=== PATIENT | female | born 1985 | race Caucasian/White ===

== ENCOUNTER 2017-05-15 20:33 | Emergency (ER) | payer OTHER ==
[2017-05-15 20:43] VITALS: BP 114/66; BMI 31.3
[2017-05-15] MEDS ORDERED: IBUPROFEN 600 MG TABLET (FP) PO ONE (20:53)
[2017-05-15] MEDS ORDERED: ACETAMINOPHEN 325 MG TABLET (FP) PO ONE (20:54)
[2017-05-15] MEDS ORDERED: ACETAMINOPHEN 325 MG TABLET (FP) ONE (20:55)
--- NOTE | 2017-05-15 21:39 | PDOC ---
History of Present Illness - General Chief Complaint: Sore Throat Stated Complaint: SORE THROAT/EAR PAIN Time Seen by Provider: 05/15/17 20:52 - History of Present Illness Initial Comments: 05/15/17 21:31 CHIEF COMPLAINT: cold symptoms HISTORY OF PRESENT ILLNESS: 32 yo F with no significant PMH [facility] with cough, runny nose, and fever x 2 days. Patient states she has been taking Tylenol that was given to her by her OBGYN after she had her baby "but I don't think I'm getting better." Patient also reports "pressure" pain to her ears. Patient denies any nausea, vomiting, or diarrhea. PAST MEDICAL HISTORY: Denies past medical history FAMILY HISTORY: Denies SOCIAL HISTORY: Denies tobacco, alcohol, illicit drug use. SURGICAL HISTORY: Denies ALLERGIES: No known drug allergies REVIEW OF SYSTEMS General/Constitutional: Fever x 2 days. Denies weakness. HEENT: Head/ear pressure. Denies change in vision. Denies sore throat. Cardiovascular: Denies chest pain or shortness of breath. Respiratory:Cough. Denies wheezing, or hemoptysis. Gastrointestinal: Denies nausea, vomiting, diarrhea . Genitourinary: Denies dysuria, frequency, or change in urination. Musculoskeletal: Denies joint or muscle swelling or pain. Denies neck or back pain. Skin and breasts: Denies rash or easy bruising. Neurologic: Headache. Denies vertigo, loss of consciousness, or loss of sensation. PHYSICAL EXAM General Appearance: Well-appearing, appropriately dressed. No apparent distress. HEENT: Nasal congestion, rhinorrhea. Tonsils 1+ b/l, non-erythematous, no exudate. EOMI, PERRLA, normal ENT inspection, normal voice, TMs normal, pharynx normal. No conjunctival pallor. No photophobia, scleral icterus. Neck: Supple. Trachea midline. No tenderness, rigidity, carotid bruit, stridor , lymphadenopathy, or thyromegaly. Respiratory/Chest: Lungs CTAB. No shortness of breath, chest tenderness, respiratory distress, accessory muscle use. No crackles, rales, rhonchi, stridor , wheezing, dullness Cardiovascular: RRR. S1, S2. Gastrointestinal/Abdominal: Normal bowel sounds. Abdomen soft, non-distended. No tenderness or rebound tenderness. No organomegaly, pulsatile mass, guarding , hernia, hepatomegaly, splenomegaly. Musculoskeletal/Extremities: Normal inspection. FROM of all extremities, normal capillary refill. Pelvis Stable. No CVA tenderness. No tenderness to extremities, pedal edema, swelling, erythema or deformity. Integumentary: Appropriate color, dry, warm. 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 Fully oriented, alert. Appropriate mood/affect. Motor strength 5/5. No appreciable EOM palsy, facial droop or sensory deficit. Past History - Past Medical History Allergies/Adverse Reactions: Allergies Allergy/AdvReac Type Severity Reaction Status Date / Time No Known Allergies Allergy Verified 05/15/17 20:39 Home Medications: Ambulatory Orders Dextromethorphan HBr [Cough Relief] 15 mg PO QID PRN #100 ml 05/15/17 Ibuprofen [Advil -] 400 mg PO QID 05/15/17 Ibuprofen [Motrin -] 600 mg PO TID PRN #21 tablet 05/15/17 Pseudoephedrine HCl [Sudafed 12 Hour] 120 mg PO BID PRN #14 tablet.er 05/15/17 Asthma: Yes (UNKNOWN LAST ATTACK) Cancer: No Cardiac Disorders: No COPD: No Diabetes: No Disorders: Yes (OVARIAN CYST) HTN: No Seizures: No Thyroid Disease: No - Surgical History Abdominal Surgery: Yes (ectopic preg) - Reproductive History (#): 2 Para: 2 Spontaneous : 1 - Immunization History Immunization Up to Date: Yes - Suicide/Smoking/Psychosocial Hx Smoking Status: Yes Smoking History: Never smoked Have you smoked in the past 12 months: No Number of Cigarettes Smoked Daily: 1 Information on smoking cessation initiated: No 'Breaking Loose' booklet given: 10/12/13 Hx Alcohol Use: No Drug/Substance Use Hx: No Substance Use Type: None Hx Substance Use Treatment: No *Physical Exam - Vital Signs Last Vital Signs Temp Pulse Resp BP Pulse Ox 101.1 F H 112 H 18 114/66 100 05/15/17 20:39 05/15/17 20:39 05/15/17 20:39 05/15/17 20:39 05/15/17 20:39 ED Treatment Course - Medications Given in the ED: ED Medications Discontinued Medications Generic Name Dose Route Start Last Admin Trade Name Freq PRN Reason Stop Dose Admin Acetaminophen 650 mg 05/15/17 20:54 05/15/17 20:57 Tylenol - PO 05/15/17 20:55 650 mg ONCE ONE Administration Medical Decision Making - Medical Decision Making 05/15/17 21:39 32 yo F with no significant PMH [facility] with cough, runny nose, and fever x 2 days. -Temp 101.1F -flu, strep swab Patient initially reported to RN that she took Motrin prior to arrival, 650 mg Tylenol ordered and given. Upon further discussion patient presents medication that she took, which was actually Tylenol 500 mg. Educated patient on importance of knowing medications that she is taking for safety; patient verbalized understanding. *DC/Admit/Observation/Transfer Diagnosis at time of Disposition: Viral URI - Discharge Dispostion Disposition: HOME Condition at time of disposition: Stable Admit: No - Prescriptions Prescriptions: Dextromethorphan HBr [Cough Relief] 15 mg PO QID PRN #100 ml PRN Reason: Cough Ibuprofen [Motrin -] 600 mg PO TID PRN #21 tablet PRN Reason: Fever Pseudoephedrine HCl [Sudafed 12 Hour] 120 mg PO BID PRN #14 tablet.er PRN Reason: runny nose/congestion - Referrals Referrals: Che Watters [Primary Care Provider] - - Patient Instructions Printed Discharge Instructions: DI for Viral Upper Respiratory Infection -- Adult Additional Instructions: Please take medications as prescribed. Follow up with her primary care doctor next week if symptoms persist. If you develop any fever unrelieved by Motrin, vomiting, diarrhea, or any new or worsening symptoms, please return to the ER. - Post Discharge Activity
[2017-05-15 21:51] VITALS: PULSE 109; TEMP 98.2
== END 2017-05-15 21:55 | disposition home or self-care (01) ==
LOC: JERFT 20:33
DX: J06.9 Acute upper respiratory infection, unspecified (principal); B97.89 Other viral agents as the cause of diseases classified elsewhere
CPT/HCPCS: 87070; 87430; 87804; 99281-25

== ENCOUNTER 2019-07-15 16:43 | Emergency (ER) | payer OTHER ==
[2019-07-15 16:49] VITALS: BMI 34.4
[2019-07-15] MEDS ORDERED: ACETAMINOPHEN 325 MG TABLET (FP) PO ONE (17:23)
--- NOTE | 2019-07-15 17:34 | PDOC ---
History of Present Illness - General Chief Complaint: Respiratory Stated Complaint: WEAK, PAIN, FEVER Time Seen by Provider: 07/15/19 16:55 History Source: Patient Exam Limitations: Clinical Condition - History of Present Illness Initial Comments: 07/15/19 17:31 Patient with no significant past medical history present with complaint of nasal congestion, body aches, sore throat, headache, fever, chills and runny nose since yesterday. Patient report taking Motrin last night and this morning for fevers but still feels a whole body aches and weakness. Denies nausea, vomiting, diarrhea, constipation. Denies any other symptoms. Is this a multiple visit Asthma Patient?: No Timing/Duration: 24 hours Past History - Past Medical History Allergies/Adverse Reactions: Allergies Allergy/AdvReac Type Severity Reaction Status Date / Time No Known Allergies Allergy Verified 07/15/19 16:49 Home Medications: Ambulatory Orders Benzonatate [Tessalon Pearls -] 100 mg PO Q8H PRN #20 capsule 07/15/19 Ipratropium [place] 2 spray NS BID PRN 5 Days #1 spray 07/15/19 Methylprednisolone [Medrol Dose [place]] 4 mg PO ASDIR #21 tablet 07/15/19 Oseltamivir Phosphate [Tamiflu -] 75 mg PO BID #10 capsule 07/15/19 Asthma: Yes (UNKNOWN LAST ATTACK) Cancer: No Cardiac Disorders: No COPD: No Diabetes: No Disorders: Yes (OVARIAN CYST) HTN: No Seizures: No Thyroid Disease: No - Surgical History Abdominal Surgery: Yes (ectopic preg) - Reproductive History (#): 2 Para: 2 Spontaneous : 1 - Immunization History Immunization Up to Date: Yes - Psycho Social/Smoking Cessation Hx Smoking Status: Yes Smoking History: Never smoked Have you smoked in the past 12 months: No Number of Cigarettes Smoked Daily: 1 'Breaking Loose' booklet given: 10/12/13 Hx Alcohol Use: No Drug/Substance Use Hx: No Substance Use Type: None Hx Substance Use Treatment: No Review of Systems - Review of Systems Able to Perform ROS?: Yes Is the patient limited Irish proficient: No Constitutional: Yes: Chills, Fever, Malaise, Weakness HEENTM: Yes: Symptoms Reported, See HPI, Nose Congestion, Throat Pain, Difficulty Swallowing. No: Eye Pain, Blurred Vision, Tearing, Recent change in vision, Double Vision, Cataracts, Ear Pain, Ocular Prothesis, Ear Discharge, Nose Pain, Tinnitus, Nose Bleeding, Hearing Loss, Throat Swelling, Mouth Pain, Dental Problems, Mouth Swelling, Other Respiratory: Yes: Symptoms reported, See HPI, Cough. No: Orthopnea, Shortness of Breath, SOB with Exertion, SOB at Rest, Stridor, Wheezing, Productive cough, Hemoptysis, Other Cardiac (ROS): No: Symptoms Reported, See HPI, Chest Pain, Edema, Irregular Heart Rate, Lightheadedness, Palpitations, Syncope, Chest Tightness, Other ABD/GI: No: Symptoms Reported, See HPI, Constipated, Diarrhea, Nausea, Vomiting , Abdominal cramping Musculoskeletal: No: Symptoms Reported All Other Systems: Reviewed and Negative *Physical Exam - Vital Signs Last Vital Signs Temp Pulse Resp BP Pulse Ox 101.0 F H 110 H 18 123/73 100 07/15/19 16:45 07/15/19 16:45 07/15/19 16:45 07/15/19 16:45 07/15/19 16:45 - Physical Exam 07/15/19 17:33 GENERAL: Well developed, well nourished. Awake and alert. No acute distress. HEENT: Mild pharyngeal erythema without exudates. Normocephalic, atraumatic. PERRLA, EOMI. No conjunctival pallor. Sclera are non-icteric. Moist mucous membranes. NECK: Supple. Full ROM. CARDIOVASCULAR: Regular rate and rhythm. No murmurs, rubs, or gallops. Distal pulses are 2+ and symmetric. PULMONARY: No evidence of respiratory distress. Lungs clear to auscultation bilaterally. No wheezing, rales or rhonchi. ABDOMINAL: Soft. Non-tender. Non-distended. No rebound or guarding. No organomegaly. Normoactive bowel sounds. MUSCULOSKELETAL Normal range of motion at all joints. SKIN: Warm and dry. Normal capillary refill. No rashes. No cyanosis. NEUROLOGICAL: Alert, awake, appropriate. Gait is normal without ataxia. PSYCHIATRIC: Cooperative. Good eye contact. Appropriate mood General Appearance: Yes: Nourished, Appropriately Dressed. No: Apparent Distress ED Treatment Course - Medications Given in the ED: ED Medications Discontinued Medications Generic Name Dose Route Start Last Admin Trade Name Freq PRN Reason Stop Dose Admin Acetaminophen 650 mg 07/15/19 17:23 07/15/19 17:28 Tylenol - PO 07/15/19 17:24 650 mg ONCE ONE Administration Medical Decision Making - Medical Decision Making 07/15/19 17:32 Patient with no significant past medical history present with complaint of nasal congestion, body aches, sore throat, headache, fever, chills and runny nose since yesterday. Patient report taking Motrin last night and this morning for fevers but still feels a whole body aches and weakness. Denies nausea, vomiting, diarrhea, constipation. Denies any other symptoms. Exam significant for fever 101 F with mild pharyngeal erythema otherwise normal exam. Lungs clear to auscultation bilateral. Patient in no acute distress. Symptoms likely influenza versus strep. Patient reports taking 3 tablets of Augmentin antibiotics from previous prescribed sinus infection. Rapid flu ordered to rule out influenza. Tylenol 60 mg p.o. ordered for fever. Treat based on lab results 07/15/19 19:15 Rapid flu negative. Patient symptoms likely viral URI. Patient reported feeling weakness so given 1 L normal saline after which patient reported feeling better. Patient stable for discharge on Tessalon Perles p.m. for call, Medrol [place] for congestion and Atrovent nasal spray for nasal congestion with advised to increase fluid intake and alternate between Tylenol and Motrin as needed for fever with PCP follow-up Discharge - Discharge Information Problems reviewed: Yes Clinical Impression/Diagnosis: Viral URI, Malaise Fever Qualifiers: Fever type: unspecified Qualified Code(s): R50.9 - Fever, unspecified Condition: Stable Disposition: HOME - Admission No - Additional Discharge Information Prescriptions: Benzonatate [Tessalon Pearls -] 100 mg PO Q8H PRN #20 capsule PRN Reason: Cough Ipratropium [place] 2 spray NS BID PRN 5 Days #1 spray PRN Reason: nasal congestion Methylprednisolone [Medrol Dose [place]] 4 mg PO ASDIR #21 tablet Oseltamivir Phosphate [Tamiflu -] 75 mg PO BID #10 capsule - Follow up/Referral Referrals: Skylar Barrow MD [Primary Care Provider] - - Patient Discharge Instructions Patient Printed Discharge Instructions: DI for Viral Upper Respiratory Infection -- Adult, DI for Influenza -- Adult Additional Instructions: Your symptoms likely caused by viral infection. Flu test ordered came back negative however mainly strain of flu test does not show on lab result. Take prescribed medications prescribed for symptom. Alternate between Tylenol Motrin as needed for fever. Increase fluid intake. Follow-up with primary care - Post Discharge Activity
[2019-07-15] MEDS ORDERED: ACETAMINOPHEN 325 MG TABLET (FP) ONE (17:48)
[2019-07-15] MEDS ORDERED: ONDANSETRON *ODT* 4 MG TABLET SL ONE (17:49)
[2019-07-15] MEDS ORDERED: ONDANSETRON 4 MG TABLET PO ONE (17:54)
[2019-07-15] MEDS ORDERED: SODIUM CHLORIDE 500 ML IV STA (18:15)
[2019-07-15] MEDS ORDERED: SODIUM CHLORIDE 1,000 ML IV STA (18:16)
[2019-07-15 19:02] VITALS: BP 114/63; PULSE 88; TEMP 98.6
== END 2019-07-15 18:05 | disposition home or self-care (01) ==
LOC: JERFT 16:43
PROC: 3E0337Z Introduction of Electrolytic and Water Balance Substance into Peripheral Vein, Percutaneous Approach (ICD-10-PCS; principal; 2019-07-15)
DX: J06.9 Acute upper respiratory infection, unspecified (principal); B97.89 Other viral agents as the cause of diseases classified elsewhere; Z87.09 Personal history of other diseases of the respiratory system
CPT/HCPCS: 87804; 96360; 99284-25; J7030; Q0162

== ENCOUNTER 2020-07-11 12:40 | Emergency (ER) | payer OTHER ==
[2020-07-11 12:50] VITALS: BMI 36.3
[2020-07-11] MEDS ORDERED: ACETAMINOPHEN 1000 MG/100 ML VIAL (NON FORMULARY) IVPB ONE (13:26)
[2020-07-11] MEDS ORDERED: ACETAMINOPHEN INJECTION 100 ML IVPB ONE (13:39)
[2020-07-11 13:52] LABS: BASO % 0.7 % (0-2.0); EOS % 5.6 % (0-4.5); HEMATOCRIT 39.3 % (32.4-45.2); HEMOGLOBIN 13.3 GM/dL (10.7-15.3); LYMPH % 34.5 % (8-40); MCH 30.8 pg (25.7-33.7); MEAN CELL VOLUME 90.7 fl (80-96); MEAN PLT VOLUME 9.3 fl (7.5-11.1); MONO % 5.5 % (3.8-10.2); NEUT % 53.7 % (42.8-82.8); PLATELET COUNT 344 K/MM3 (134-434); RBC 4.33 M/mm3 (3.60-5.2); RDW 12.8 % (11.6-15.6)
[2020-07-11 14:00] LABS: INR 0.98 (0.83-1.09); PROTHROMBIN TIME (PATIENT) 11.9 SEC (9.7-13.0)
[2020-07-11 14:02] LABS: ACTIVATED PTT 33.2 SECONDS (25.2-36.5)
[2020-07-11 14:04] LABS: CHLORIDE 107 mmol/L (98-107); SODIUM 140 mmol/L (136-145)
[2020-07-11 14:07] LABS: ALBUMIN 3.5 g/dl (3.4-5.0); ANION GAP 8 MMOL/L (8-16); CO2 25 mmol/L (21-32)
[2020-07-11 14:08] LABS: BLOOD UREA NITROGEN 11.9 mg/dL (7-18); GLUCOSE,RANDOM 110 mg/dL (74-106)
[2020-07-11 14:10] LABS: CHOLESTEROL 208 mg/dL (50-200); SGOT/AST 27 U/L (15-37); SGPT/ALT 41 U/L (13-61)
[2020-07-11 14:11] LABS: CREATININE 0.5 mg/dL (0.55-1.3); TRIGLYCERIDES 364 mg/dL (0-150)
[2020-07-11 14:12] LABS: ALK PHOS 84 U/L (45-117); BILIRUBIN,TOTAL 0.4 mg/dL (0.2-1); LDL CHOLESTEROL (ONLY SJRH) 122 mg/dL (5-100); TOT PROT 7.2 g/dl (6.4-8.2)
[2020-07-11 14:13] LABS: HDL CHOLESTEROL 55 mg/dL (40-60)
[2020-07-11] MEDS ORDERED: METOCLOPRAMIDE HCL INJECTION 10 MG/2 ML VIAL IVPUSH ONE (15:10)
[2020-07-11] MEDS ORDERED: METOCLOPRAMIDE HCL INJECTION 10 MG/2 ML VIAL ONE (15:17)
[2020-07-11 19:00] VITALS: TEMP 97.9
[2020-07-11 19:26] VITALS: BP 99/65; PULSE 77
== END 2020-07-11 19:26 | disposition home or self-care (01) ==
LOC: JER 12:40
PROC: 3E0333Z Introduction of Anti-inflammatory into Peripheral Vein, Percutaneous Approach (ICD-10-PCS; principal; 2020-07-11)
PROC: 3E033GC Introduction of Other Therapeutic Substance into Peripheral Vein, Percutaneous Approach (ICD-10-PCS; 2020-07-11)
DX: R20.2 Paresthesia of skin (principal); R51.9 Headache, unspecified
CPT/HCPCS: 36415; 70450-TC; 70551-TC; 80053; 80061; 82550; 83721; 84484; 84703; 85025; 85610; 85730; 86850; 86900; 86901; 93005; 93010; 99285-25; C9803; J0131; U0003

== ENCOUNTER 2021-03-25 09:02 | Emergency (ER) | payer OTHER ==
[2021-03-25 09:11] VITALS: BP 120/72; PULSE 83; TEMP 98.8; BMI 34.3
[2021-03-25] MEDS ORDERED: DEXAMETHASONE LIQUID 0.5 MG/5 ML PO ONE (10:01)
[2021-03-25] MEDS ORDERED: ACETAMINOPHEN 325 MG TABLET (FP) PO ONE (10:01)
[2021-03-25] MEDS ORDERED: ACETAMINOPHEN 325 MG TABLET (FP) ONE (10:23)
[2021-03-25] MEDS ORDERED: DEXAMETHASONE SOD PHOSPHATE 10 MG/1 ML VIAL ONE (10:23)
[2021-03-25 10:50] LABS: THROAT:GRP A STREP NOT DETECTED (NOTDETECTED)
[2021-03-25 11:44] LABS: SARS COV-2 MOLECULAR Negative (NEGATIVE)
== END 2021-03-25 10:53 ==
LOC: JER 09:02
DX: J02.9 Acute pharyngitis, unspecified (principal)
CPT/HCPCS: 87651; 99283-25; C9803; U0003; U0005

== ENCOUNTER 2021-08-17 13:02 | Emergency (ER) | payer OTHER ==
[2021-08-17 13:13] VITALS: BP 102/66; PULSE 98; TEMP 97.6; BMI 34.3
[2021-08-17] MEDS ORDERED: guaiFENesin/CODEINE 10 ML UNIT-DOSE CUPS PO ONE (13:35)
[2021-08-17] MEDS ORDERED: DEXAMETHASONE 4 MG TABLET (FP) PO ONE (13:35)
[2021-08-17] MEDS ORDERED: DEXAMETHASONE SOD PHOSPHATE 10 MG/1 ML VIAL ONE (13:36)
[2021-08-17] MEDS ORDERED: guaiFENesin/CODEINE 5 ML UNIT-DOSE CUPS PO ONE (13:37)
[2021-08-18 05:08] LABS: SARS-CoV-2 NAA Not Detected (Not Detected)
== END 2021-08-17 14:37 | disposition home or self-care (01) ==
LOC: JER 13:02
DX: J45.21 Mild intermittent asthma with (acute) exacerbation (principal); J06.9 Acute upper respiratory infection, unspecified; R05.1 Acute cough; R09.81 Nasal congestion
CPT/HCPCS: 71046-TC-FY; 99284-25; C9803-CS; U0003; U0005

== ENCOUNTER 2021-10-09 11:41 | Emergency (ER) | payer OTHER ==
[2021-10-09 11:55] VITALS: BP 111/72; PULSE 65; TEMP 98; BMI 34.3
[2021-10-09] MEDS ORDERED: ACETAMINOPHEN 500 MG TABLET (FP) PO ONE (14:16)
[2021-10-09] MEDS ORDERED: ALBUTEROL SO4 HFA INHALER IH ONE ×2 (14:16→14:17)
[2021-10-09] MEDS ORDERED: ACETAMINOPHEN 500 MG TABLET (FP) ONE (14:18)
== END 2021-10-09 15:45 | disposition home or self-care (01) ==
LOC: JERFT 11:41
DX: J20.9 Acute bronchitis, unspecified (principal)
CPT/HCPCS: 0241U-QW; 71046-TC-FY; 99284-25

== ENCOUNTER 2023-11-06 21:33 | Emergency (ER) | payer OTHER ==
[2023-11-06 21:48] VITALS: RESP 18; BMI 31.3
[2023-11-06] MEDS ORDERED: ONDANSETRON 4 MG/2 ML VIAL ONE (23:08)
[2023-11-06] MEDS: ONDANSETRON 4 MG/2 ML VIAL IVPUSH ONE (23:13)
[2023-11-06] MEDS: SODIUM CHLORIDE 0.9% 500 ML INFUS.BAG IV ONE (23:13)
[2023-11-06 23:26] LABS: EPI CELLS 14 /uL (0-25.1); HYALINE CASTS 1 /uL (0-3.1); PH,URINE 5.5 (5.0-8.0); URINE APPEARANCE CLEAR; URINE BACTERIA 60 /uL (0-1359); URINE BILIRUBIN NEGATIVE (NEGATIVE); URINE COLOR DK YELLOW; URINE GLUCOSE (UA) NEGATIVE (NEGATIVE); URINE KETONE 4+ (NEGATIVE); URINE LEUK ESTERASE NEGATIVE (NEGATIVE); URINE NITRITE NEGATIVE (NEGATIVE); URINE PROTEIN 1+ (NEGATIVE); URINE WBC 14 /uL (0-25.8)
[2023-11-06 23:33] LABS: ACTIVATED PTT 31.6 SECONDS (25.2-36.5); INR 0.99 (0.83-1.09); PROTHROMBIN TIME (PATIENT) 11.4 SEC (9.7-13.0)
[2023-11-06 23:34] LABS: HCG,QUALITATIVE URINE Positive
[2023-11-07 00:10] LABS: POTASSIUM 3.8 mmol/L (3.5-5.1)
[2023-11-07 00:12] LABS: ALBUMIN 3.2 g/dl (3.4-5.0); CALCIUM 8.7 mg/dL (8.5-10.1)
[2023-11-07 00:17] LABS: BLOOD UREA NITROGEN 16.9 mg/dL (7-18)
[2023-11-07 00:25] LABS: BILIRUBIN,TOTAL 1.2 mg/dL (0.2-1)
[2023-11-07 00:27] LABS: CREATININE 0.4 mg/dL (0.55-1.3)
[2023-11-07] MEDS: SODIUM CHLORIDE 1,000 ML IV STA (01:19)
[2023-11-07 01:32] VITALS: BP 105/56; PULSE 94; TEMP 98.6
[2023-11-07 01:40] LABS: BASO % 0.1 % (0-2.0); EOS % 0.5 % (0-4.5); HEMATOCRIT 36.5 % (32.4-45.2); HEMOGLOBIN 12.3 GM/dL (10.7-15.3); LYMPH % 8.3 % (8-40); MCH 30.6 pg (25.7-33.7); MCHC 33.7 g/dl (32.0-36.0); MEAN CELL VOLUME 90.8 fl (80-96); MEAN PLT VOLUME 8.9 fl (7.5-11.1); NEUT % 88.1 % (42.8-82.8); PLATELET COUNT 273 10^3/uL (134-434); RBC 4.02 M/mm3 (3.60-5.2); RDW 13.1 % (11.6-15.6); WHITE BLOOD COUNT 12.4 K/mm3 (4.0-10.0)
== END 2023-11-07 03:11 | disposition home or self-care (01) ==
LOC: JER 21:33
PROC: 3E033GC Introduction of Other Therapeutic Substance into Peripheral Vein, Percutaneous Approach (ICD-10-PCS; principal; 2023-11-06)
PROC: 3E0337Z Introduction of Electrolytic and Water Balance Substance into Peripheral Vein, Percutaneous Approach (ICD-10-PCS; 2023-11-07)
DX: O99.891 Other specified diseases and conditions complicating pregnancy (principal); R19.7 Diarrhea, unspecified; O21.9 Vomiting of pregnancy, unspecified; O26.892 Other specified pregnancy related conditions, second trimester; R10.9 Unspecified abdominal pain; Z3A.14 14 weeks gestation of pregnancy; Z20.822 Contact with and (suspected) exposure to COVID-19
CPT/HCPCS: 0241U-QW; 36415; 76815-TC; 80053; 81003; 84702; 84703; 85025; 85610; 85730; 86850; 86900; 86901; 87086; 99284-25

== ENCOUNTER 2024-05-04 22:35 | Inpatient (IN) | payer OTHER ==
[2024-05-05] MEDS: DEXTROSE 5%-LACTATED RINGERS 1,000 ML IV SCH (00:45)
[2024-05-05 01:14] LABS: BASO % 0.3 % (0-2.0); EOS % 2.1 % (0-4.5); HEMATOCRIT 36.4 % (32.4-45.2); HEMOGLOBIN 12.4 GM/dL (10.7-15.3); LYMPH % 25.6 % (8-40); MCH 30.4 pg (25.7-33.7); MEAN CELL VOLUME 89.4 fl (80-96); MEAN PLT VOLUME 9.8 fl (7.5-11.1); MONO % 7.4 % (3.8-10.2); NEUT % 64.6 % (42.8-82.8); PLATELET COUNT 193 10^3/uL (134-434); RBC 4.07 M/mm3 (3.60-5.2); RDW 14.1 % (11.6-15.6); WHITE BLOOD COUNT 8.8 K/mm3 (4.0-10.0)
[2024-05-05 01:33] LABS: POTASSIUM 4.1 mmol/L (3.5-5.1)
[2024-05-05 01:35] LABS: CALCIUM 9.1 mg/dL (8.5-10.1)
[2024-05-05 01:36] LABS: BLOOD UREA NITROGEN 14.2 mg/dL (7-18)
[2024-05-05 01:39] LABS: CREATININE 0.5 mg/dL (0.55-1.3)
[2024-05-05 01:51] LABS: INR 0.94 (0.83-1.09); PROTHROMBIN TIME (PATIENT) 10.6 SEC (9.7-13.0)
[2024-05-05 01:55] VITALS: BMI 39.9
[2024-05-05] MEDS: AMPICILLIN - 2 GM in SODIUM CHLORIDE 100 ML IVPB ONE (02:10)
[2024-05-05] MEDS ORDERED: AMPICILLIN SODIUM 2 GM VIAL ONE (02:22)
[2024-05-05] MEDS ORDERED: BUTORPHANOL TARTRATE 1 MG/ML VIAL ONE (05:07)
[2024-05-05] MEDS ORDERED: PROMETHAZINE HCL 25 MG/1 ML VIAL ONE (05:07)
[2024-05-05] MEDS: PROMETHAZINE HCL 25 MG/1 ML VIAL IVPB ONE (05:15)
[2024-05-05] MEDS: BUTORPHANOL TARTRATE 1 MG/ML VIAL IVPB ONE (05:15)
[2024-05-05] MEDS: AMPICILLIN - 1 GM in SODIUM CHLORIDE 100 ML IVPB SCH (06:15)
[2024-05-05] MEDS ORDERED: AMPICILLIN SODIUM 1 GM VIAL ONE ×5 (06:29→22:10)
[2024-05-05] MEDS ORDERED: OXYTOCIN 30 UNITS in 0.9% NS 30 UNIT/500 ML INFUS.BAG IVPB ONE (08:39)
[2024-05-05] MEDS: OXYTOCIN 30 UNITS in 0.9% NS 30 UNIT/500 ML INFUS.BAG IVPB SCH (08:45)
[2024-05-05] MEDS ORDERED: FENTANYL/BUPIVACAINE/NS/PF - PCEA - 50 ML DISP.SYRIN EP ONE ×3 (11:36→21:37)
[2024-05-05] MEDS ORDERED: FENTANYL CITRATE/PF 50 MCG/ML VIAL ONE (11:37)
[2024-05-05] MEDS: FENTANYL/BUPIVACAINE/NS/PF - PCEA - 50 ML DISP.SYRIN EP SCH (11:55)
[2024-05-05] MEDS ORDERED: NALOXONE HCL 0.4 MG/ML VIAL IVPUSH PRN (12:05)
[2024-05-05] MEDS ORDERED: ACETAMINOPHEN INJECTION 100 ML ONE (14:04)
[2024-05-05] MEDS: ACETAMINOPHEN 1000 MG/100 ML BAG IVPB ONE (14:12)
[2024-05-05] MEDS ORDERED: SODIUM CHLORIDE 100 ML IVPB ONE (22:10)
[2024-05-05] MEDS ORDERED: OXYTOCIN 20 UNITS in 0.9% NS 20 UNIT/1,000 ML INFUS.BAG IV ONE (23:27)
[2024-05-05] MEDS ORDERED: LIDOCAINE HCL 1% PRESERVATIVE FREE - 30ML VIAL ONE (23:28)
[2024-05-06] MEDS: METHYLERGONOVINE MALEATE 0.2 MG/1 ML AMP IM PRN (00:50)
[2024-05-06] MEDS: OXYTOCIN 20 UNITS in 0.9% NS 20 UNIT/1,000 ML INFUS.BAG IV SCH (01:15)
[2024-05-06] MEDS ORDERED: WITCH HAZEL 50% (TUCKS) 40 PAD/JAR PAD TP PRN (01:23)
[2024-05-06] MEDS ORDERED: BENZOCAINE 20% 57 GM BOTTLE TP PRN (01:23)
[2024-05-06] MEDS ORDERED: ACETAMINOPHEN 325 MG TABLET (FP) PO PRN (01:23)
[2024-05-06] MEDS ORDERED: BENZOCAINE 28 GM HEMORRHOIDAL OINTMENT TP PRN (01:23)
[2024-05-06] MEDS ORDERED: oxyCODONE HCL 5 MG TABLET PO PRN (01:23)
[2024-05-06] MEDS ORDERED: BISACODYL 10 MG SUPP.RECT RC PRN (01:23)
[2024-05-06] MEDS: FLU VACCINE (FLULAVAL) PF 45 MCG/0.5 ML SYRINGE 2024-2025 IM ONE (09:30)
[2024-05-07] MEDS: IBUPROFEN 600 MG TABLET (FP) PO PRN (05:53)
[2024-05-07 08:03] LABS: BASO % 0.3 % (0-2.0); EOS % 3.6 % (0-4.5); HEMATOCRIT 30.9 % (32.4-45.2); HEMOGLOBIN 10.2 GM/dL (10.7-15.3); LYMPH % 26.6 % (8-40); MCH 29.9 pg (25.7-33.7); MCHC 32.9 g/dl (32.0-36.0); MEAN PLT VOLUME 9.4 fl (7.5-11.1); NEUT % 62.5 % (42.8-82.8); PLATELET COUNT 168 10^3/uL (134-434); RBC 3.39 M/mm3 (3.60-5.2); RDW 14.5 % (11.6-15.6)
[2024-05-07] MEDS ORDERED: SENNOSIDES/DOCUSATE COMBO (SENNA PLUS) TABLET (UD) PO PRN (22:00)
[2024-05-08 09:44] VITALS: BP 117/72; PULSE 71; RESP 17; TEMP 97.9
== END 2024-05-08 13:40 | disposition home or self-care (01) | DRG 560 ==
LOC: JDEL 22:35 → JLDR 05-05 00:03 → J3W 05-06 03:16
PROVIDERS: ADMIT Obstetrics & Gynecology; ATTEND Obstetrics & Gynecology
PROC: 0KQM0ZZ Repair Perineum Muscle, Open Approach (ICD-10-PCS; principal; 2024-05-06)
PROC: 10E0XZZ Delivery of Products of Conception, External Approach (ICD-10-PCS; 2024-05-06)
DX: O34.211 Maternal care for low transverse scar from previous cesarean delivery (principal); O70.1 Second degree perineal laceration during delivery; Z3A.39 39 weeks gestation of pregnancy; Z37.0 Single live birth
CPT/HCPCS: 36415; 59409; 80048; 85025; 85610; 85730; 86780; 86850; 86900; 86901; 90656; G0008; J0131